=== PATIENT | female | born 1965 | race Caucasian/White ===

== ENCOUNTER 2020-08-29 19:23 | Emergency (ER) | payer BC ==
[~2020-08-29] VITALS: Ht 167.6 cm; Wt 59.0 kg
[2020-08-29] MEDS ORDERED: IV NORMAL SALINE 1000 ML BAG IV ONE (19:45)
[2020-08-29] MEDS ORDERED: PANTOPRAZOLE SODIUM 40 MG VIAL IV ONE (19:45)
[2020-08-29] MEDS ORDERED: PANTOPRAZOLE SODIUM 40 MG VIAL ONE (19:49)
--- NOTE | 2020-08-29 19:57 | NUR ---
55 y/o female presents to ED via RA from home for Abdominal pain that radiates upwards to her chest. Pain is 8/10 - described as sharp. Patient states she has no previous medical history and takes no medications. Stated that a similar issue has been present "a few weeks ago" but it went away rather quickly. A&Ox4. Pleasant and cooperative. Visibly distressed. NSR. Systolic BP slightly elevated on initial measurement. No diaphoresi, chills, or palpitations. Sats >94% on Room Air. No SOB. GI/: No issues reported.
[2020-08-29 19:58] LABS: BASOPHILS % (AUTO) 0.7 % (0.0-2.0); EOSINOPHILS # (AUTO) 0.1 K/uL (0.0-0.7); EOSINOPHILS % (AUTO) 2.3 % (0.0-7.0); HEMATOCRIT 37.3 % (31.2-41.9); HEMOGLOBIN 12.8 g/dL (10.9-14.3); LYMPHOCYTES # (AUTO) 2.1 K/uL (20.0-40.0); LYMPHOCYTES % (AUTO) 32.6 % (20.5-51.5); MEAN CORPUSCULAR HEMOGLOBIN 30.8 uug (24.7-32.8); MEAN CORPUSCULAR HGB CONC 34 g/dL (32.3-35.6); MEAN CORPUSCULAR VOLUME 90.1 fL (75.5-95.3); MONOCYTES # (AUTO) 0.4 K/uL (2.0-10.0); MONOCYTES % (AUTO) 5.8 % (0.0-11.0); NEUTROPHILS # (AUTO) 3.8 K/uL (1.8-8.9); NEUTROPHILS % (AUTO) 58.6 % (38.5-71.5); PLATELET COUNT (AUTO) 314 K/uL (179-408); RED BLOOD CELL COUNT(AUTO) 4.14 MIL/uL (3.63-4.92); WHITE BLOOD COUNT (AUTO) 6.5 K/uL (3.8-11.8)
[2020-08-29 20:00] LABS: CREATININE 0.8 mg/dL (0.6-1.3); POTASSIUM 3.6 mmol/L (3.5-5.1)
[2020-08-29 20:06] LABS: BILIRUBIN,DIRECT 0.2 mg/dL (0.0-0.2); BILIRUBIN,TOTAL 0.4 mg/dL (0.2-1.0); TOTAL PROTEIN, SERUM 7.1 g/dL (6.4-8.2)
--- NOTE | 2020-08-29 20:59 | NUR ---
US tech paged - Gallbladder US pending
--- NOTE | 2020-08-29 21:36 | NUR ---
US tech at bedside
--- NOTE | 2020-08-29 22:00 | NUR ---
Patient to be DC'd pending second negative Troponin result
--- NOTE | 2020-08-29 23:48 | NUR ---
Patient discharged to home in stable condition. Written and verbal after care instructions given. Patient verbalizes understanding of instructions. Stressed follow up or return to ER for worsening s/s. Belongings with patient. Steady gait. VSS. Copy of Labs + Diagnostics given.
[2020-08-29 23:50] VITALS: BP 115/79
== END 2020-08-29 23:50 | disposition home or self-care (01) ==
LOC: ER 19:25
DX: R07.9 Chest pain, unspecified (principal); K80.20 Calculus of gallbladder without cholecystitis without obstruction; R94.31 Abnormal electrocardiogram [ECG] [EKG]
CPT/HCPCS: 36415; 71045; 76705; 80048; 80076; 83690; 84484 ×2; 85025; 93005 ×2; 96374; 99285; C9113; 70030-TC; A4663; J7030